=== PATIENT | female | born 1975 | race Hispanic/Latino ===

== ENCOUNTER 2022-04-02 17:47 | Emergency (ER) | payer OTHER ==
[~2022-04-02] VITALS: Ht 165.1 cm; Wt 75.7 kg
[2022-04-02] MEDS ORDERED: LACT10SO9 PO (21:02)
[2022-04-02 21:17] VITALS: BP 131/80
== END 2022-04-02 21:22 | disposition home or self-care (01) ==
LOC: EDH 17:47
DX: K59.00 Constipation, unspecified (principal); E11.9 Type 2 diabetes mellitus without complications